=== PATIENT | male | born 1955 | race Caucasian/White ===

== ENCOUNTER 2016-07-25 13:58 | Emergency (ER) | payer OTHER ==
[~2016-07-25] VITALS: Ht 188 cm; Wt 133.8 kg
[~2016-07-25 13:58] MED LIST: CITALOPRAM HBR40 MG PO; COLACE100 MG PO; COUMADIN 2 MG TA2 M1 PO; CYMBALTA20 MG PO; GLUCOPHAGE500 MG PO; LEVAQUIN 500 M500 M2 PO; NEURONTIN 300300 M1 PO; NEURONTIN 300M300 M2 PO; OXYBUTYNIN 5 MG5 M1 PO; PERCOCET 10-321 EACH PO; PERCOCET 7.5-31 EACH PO; RAPAFLO8 MG PO; ROBAXIN 750 MG750 M1 PO; TYLENOL325 MG PO
[2016-07-25 14:49] LABS: ABSOLUTE NEUTROPHILS 7.6 thou/uL (1.4-8.2); BASOPHILS 0.6 % (0.0-2.0); EOSINOPHILS 1.5 % (0.0-3.0); HEMATOCRIT 42.8 % (42.0-52.0); HEMOGLOBIN 14.8 gm/dL (14.0-18.0); LYMPHOCYTES 17.8 % (24.0-44.0); MCHC 34.6 g/dL (28.0-37.0); MCV 83.8 fL (80.0-100.0); MONOCYTES 6.9 % (1.0-8.0); PLATELET COUNT 279 thou/uL (150-400); POLYS 73.2 % (36.0-66.0); RBC 5.11 mil/uL (4.50-6.00); RDW 13.6 % (10.5-14.5); WBC 10.3 thou/uL (4.0-11.0)
[2016-07-25 14:50] LABS: MANUAL DIFF NO
[2016-07-25 14:58] LABS: CREATININE 1.5 mg/dL (0.7-1.3)
[2016-07-25 15:03] LABS: ALBUMIN 4.1 g/dL (3.4-5.0); TOTAL BILIRUBIN 0.4 mg/dL (<0.1-1.0); TOTAL PROTEIN 7.9 g/dL (6.4-8.2)
[2016-07-25 15:09] LABS: URINE BILIRUBIN NEGATIVE (Negative); URINE BLOOD 1+ (Negative); URINE GLUCOSE-RANDOM* NEGATIVE (Negative); URINE KETONES NEGATIVE (Negative); URINE NITRITE NEGATIVE (Negative); URINE PROTEIN (DIPSTICK) NEGATIVE (Negative); URINE SPECIFIC GRAVITY 1.015 (1.003-1.035); URINE UROBILINOGEN 0.2 E.U./dl (0.2-1.0)
[2016-07-25 15:10] LABS: URINE COLOR YELLOW
[2016-07-25 15:20] LABS: BACTERIA None Seen /HPF (None Seen); CASTS None Seen /LPF (None Seen); CRYSTALS None Seen /LPF (None Seen); SQUAMOUS 0-3 Few /LPF (0-3); URINE RBC 3-10 Few /HPF (0-2); URINE WBC None Seen /HPF (0-5)
[2016-07-25] MEDS ORDERED: FLOMAX0.4 MG PO (16:17)
== END 2016-07-25 16:32 | disposition home or self-care (01) ==
LOC: ER 13:58
PROVIDERS: Nurse Practitioner Family
DX: E11.22 Type 2 diabetes mellitus with diabetic chronic kidney disease (principal); N18.9 Chronic kidney disease, unspecified; E11.40 Type 2 diabetes mellitus with diabetic neuropathy, unspecified; Z88.5 Allergy status to narcotic agent; Z88.0 Allergy status to penicillin; Z88.2 Allergy status to sulfonamides; Z91.011 Allergy to milk products; Z91.012 Allergy to eggs

== ENCOUNTER 2016-09-09 14:38 | Emergency (ER) | payer OTHER ==
[~2016-09-09] VITALS: Ht 182.9 cm; Wt 131.5 kg
--- NOTE | ~2016-09-09 | EKG ---
[facility] [place] [address] ELECTROCARDIOGRAM REPORT Name: MEENAKSHI WERNER Room #: DEP ANDALUSIA HEALTHSamara#: [id number] Admission: 09/09/16 Attend Phys: Discharge: 09/09/16 Date of : 51 Report #: [id number] THIS REPORT FOR: //name// [facility] ED Test Date: 2016-09-09 Test Time: 15:03:35 Pat Name: MEENAKSHI WERNER Department: Room: Gender: Recruiting Manager: : 1955 Requested By: Marli Turner Order Number: [id number] MD: Ayan Hernandez Measurements Intervals [place] Rate: 98 P: 42 [place]: 177 QRS: -30 QRSD: 133 T: 56 QT: 350 QTc: 447 Interpretive Statements Sinus rhythm IVCD, consider atypical RBBB Baseline wander in lead(s) V4 Compared to ECG 02/19/2014 13:41:18 incomplete right bundle branch block is now present Electronically Signed On 09-10-2016 8:07:08 CDT by Ayan Hernandez [email or web address] <ELECTRONICALLY SIGNED> By: Ayan Hernandez MD, [facility] 09/10/16 [id number] Ayan Hernandez MD, [facility] /EPI
[~2016-09-09 14:38] MED LIST changes: +FLOMAX0.4 MG PO
[2016-09-09 15:14] LABS: HEMATOCRIT 35.7 % (42.0-52.0); MCH 28.8 pg (26.0-34.0); MCHC 33.6 g/dL (28.0-37.0); MCV 85.8 fL (80.0-100.0); PLATELET COUNT 195 thou/uL (150-400); RBC 4.16 mil/uL (4.50-6.00); RDW 15.1 % (10.5-14.5); WBC 7.9 thou/uL (4.0-11.0)
[2016-09-09 15:16] LABS: MANUAL DIFF YES
[2016-09-09 15:26] LABS: ANION GAP 12 mmol/L (7-16); BUN 18 mg/dL (7-18); CALCIUM 8.9 mg/dL (8.5-10.1); CHLORIDE 97 mmol/L (98-107); CO2 22 mmol/L (21-32); CREATININE 1.4 mg/dL (0.7-1.3); GLUCOSE 187 mg/dL (74-106); POTASSIUM 4.4 mmol/L (3.5-5.1); SODIUM 131 mmol/L (136-145)
[2016-09-09 15:34] LABS: TROPONIN-I < 0.04 ng/mL (<0.04-0.07)
[2016-09-09 15:38] LABS: ABSOLUTE NEUTROPHILS 6.8 thou/uL (1.4-8.2); TOTAL CELL COUNT 100
[2016-09-09 16:37] LABS: URINE BILIRUBIN NEGATIVE (Negative); URINE BLOOD 2+ (Negative); URINE COLOR YELLOW; URINE GLUCOSE-RANDOM* NEGATIVE (Negative); URINE KETONES NEGATIVE (Negative); URINE NITRITE NEGATIVE (Negative); URINE PROTEIN (DIPSTICK) TRACE (Negative); URINE SPECIFIC GRAVITY <= 1.005 (1.003-1.035); URINE UROBILINOGEN 0.2 E.U./dl (0.2-1.0)
[2016-09-09 16:53] LABS: BACTERIA 1-9 Few /HPF (None Seen); CASTS None Seen /LPF (None Seen); CRYSTALS None Seen /LPF (None Seen); SQUAMOUS None Seen /LPF (0-3); URINE RBC 3-10 Few /HPF (0-2); URINE WBC 6-15 Few /HPF (0-5)
[2016-09-09] MEDS ORDERED: MACROBID 100 M100 M1 PO (16:58)
== END 2016-09-09 17:19 | disposition home or self-care (01) ==
LOC: ER 14:38
PROVIDERS: Emergency Medicine
DX: R55 Syncope and collapse (principal); N39.0 Urinary tract infection, site not specified; E11.40 Type 2 diabetes mellitus with diabetic neuropathy, unspecified; Z98.890 Other specified postprocedural states; Z96.642 Presence of left artificial hip joint; Z91.011 Allergy to milk products; Z88.5 Allergy status to narcotic agent; Z88.0 Allergy status to penicillin; Z88.2 Allergy status to sulfonamides; Z91.018 Allergy to other foods

== ENCOUNTER 2020-03-22 10:18 | Emergency (ER) | payer OTHER ==
[~2020-03-22] VITALS: Ht 182.9 cm; Wt 108.9 kg
[~2020-03-22 10:18] MED LIST changes: +MACROBID 100 M100 M1 PO
[2020-03-22 10:23] VITALS: BP 131/67
== END 2020-03-22 11:39 | disposition home or self-care (01) ==
LOC: ER 10:18
DX: S80.921A Unspecified superficial injury of right lower leg, initial encounter (principal); M79.89 Other specified soft tissue disorders; E11.40 Type 2 diabetes mellitus with diabetic neuropathy, unspecified; Z48.00 Encounter for change or removal of nonsurgical wound dressing; Z98.890 Other specified postprocedural states; Z96.642 Presence of left artificial hip joint; Z79.2 Long term (current) use of antibiotics; Z79.899 Other long term (current) drug therapy; Z91.011 Allergy to milk products; Z88.5 Allergy status to narcotic agent; Z88.0 Allergy status to penicillin; Z88.2 Allergy status to sulfonamides; Z91.012 Allergy to eggs; X58.XXXA Exposure to other specified factors, initial encounter; Y93.89 Activity, other specified; Y92.89 Other specified places as the place of occurrence of the external cause; Y99.8 Other external cause status

== ENCOUNTER 2020-05-26 11:41 | Emergency (ER) | payer OTHER ==
[~2020-05-26] VITALS: Ht 182.9 cm; Wt 133.8 kg
[2020-05-26 11:44] VITALS: BP 131/69
[2020-05-26] MEDS ORDERED: NEURONTIN300 MG PO (12:29)
== END 2020-05-26 12:32 | disposition home or self-care (01) ==
LOC: ER 11:41
DX: E11.40 Type 2 diabetes mellitus with diabetic neuropathy, unspecified (principal); Z79.899 Other long term (current) drug therapy; Z88.0 Allergy status to penicillin; Z88.2 Allergy status to sulfonamides; Z88.5 Allergy status to narcotic agent; Z91.012 Allergy to eggs; Z91.011 Allergy to milk products

== ENCOUNTER → 2020-07-28 | Outpatient (CLI) | payer OTHER ==
[~2020-07-28] VITALS: Ht 182.9 cm; Wt 133.8 kg
[~2020-07-28] MED LIST changes: +AMARYL2 M1 PO; +BUSPIRONE HCL10 MG PO; +DICYCLOMINE HCL20 MG PO; +DULOXETINE HCL30 MG PO; +FUROSEMIDE 40 M40 MG PO; +LIPITOR40 MG PO; +NEURONTIN300 MG PO; +OCUVITE ADULT1 EAC1 PO; +ZESTRIL10 MG PO; +ZOLOFT 50 MG TA50 MG PO
[2020-07-28 14:50] VITALS: BP 114/62
--- NOTE | 2020-07-28 15:37 | NUR ---
Pain Clinic Assessment: 1. History of Osteoarthritis: NO History of Rheumatoid Arthritis: NO 2. Height: 6 ft. 0 in. 182.9 cm. Weight: 295.0 lb. oz. 133.812 kg. Patient's BMI: 40.0 3. Vital Signs: BP: 114/62 Pulse: 79 Resp: 20 Temp: 02 Sat: 98 ECG Mon: 4. Pain Intensity: 6 TO 10 5. Fall Risk: Dizziness: N Needs help standing or walking: Y Fallen in the last 3 months: Y Fall risk comments: 6. Patient on Blood Thinner: None 7. History of Hypertension: N 8. Opioid Therapy greater than 6 weeks: N Opiate Contract Signed: 9. Risk Assessment Tool Provided: LOW-1 10. Functional Assessment Tool: 11. Recreational Drug Use: Never Drug Type: Tobacco Use: Never Smoker Tobacco Type: Amount or Packs/day: How Many Years: Alcohol Use: No Frequency: Quant:
== END ==
LOC: PAIN 12:50
PROVIDERS: ATTEND Anesthesiology Pain Medicine
DX: E11.40 Type 2 diabetes mellitus with diabetic neuropathy, unspecified (principal); G47.33 Obstructive sleep apnea (adult) (pediatric); E66.01 Morbid (severe) obesity due to excess calories; Z88.8 Allergy status to other drugs, medicaments and biological substances; Z79.899 Other long term (current) drug therapy

== ENCOUNTER → 2020-08-04 | Outpatient (CLI) | payer OTHER ==
[~2020-08-04] VITALS: Ht 182.9 cm; Wt 137.3 kg
[2020-08-04 10:24] VITALS: BP 102/54
--- NOTE | 2020-08-04 10:31 | NUR ---
Pain Clinic Assessment: 1. History of Osteoarthritis: NO History of Rheumatoid Arthritis: NO 2. Height: 6 ft. 0 in. 182.9 cm. Weight: 302.6 lb. oz. 137.259 kg. Patient's BMI: 41.0 3. Vital Signs: BP: 102/54 Pulse: 78 Resp: 20 Temp: 02 Sat: 97 ECG Mon: 4. Pain Intensity: 5 5. Fall Risk: Dizziness: N Needs help standing or walking: Y Fallen in the last 3 months: N Fall risk comments: 6. Patient on Blood Thinner: None 7. History of Hypertension: N 8. Opioid Therapy greater than 6 weeks: N Opiate Contract Signed: 9. Risk Assessment Tool Provided: LOW-1 10. Functional Assessment Tool: 11. Recreational Drug Use: Never Drug Type: Tobacco Use: Never Smoker Tobacco Type: Amount or Packs/day: How Many Years: Alcohol Use: No Frequency: Quant:
== END | disposition home or self-care (01) ==
LOC: PAIN 07:20
PROVIDERS: ATTEND Anesthesiology Pain Medicine
DX: M47.816 Spondylosis without myelopathy or radiculopathy, lumbar region (principal); G89.29 Other chronic pain; E11.22 Type 2 diabetes mellitus with diabetic chronic kidney disease; N18.9 Chronic kidney disease, unspecified; Z98.890 Other specified postprocedural states; Z79.899 Other long term (current) drug therapy; Z88.0 Allergy status to penicillin; Z88.2 Allergy status to sulfonamides

== ENCOUNTER → 2020-09-04 | Outpatient (CLI) | payer OTHER ==
[~2020-09-04] VITALS: Ht 182.9 cm; Wt 138.8 kg
[2020-09-04 15:30] VITALS: BP 114/59
--- NOTE | 2020-09-04 15:39 | NUR ---
Pain Clinic Assessment: 1. History of Osteoarthritis: NO History of Rheumatoid Arthritis: NO 2. Height: 6 ft. 0 in. 182.9 cm. Weight: 306.0 lb. oz. 138.801 kg. Patient's BMI: 41.5 3. Vital Signs: BP: 114/59 Pulse: 80 Resp: 16 Temp: 02 Sat: 98 ECG Mon: 4. Pain Intensity: 6 5. Fall Risk: Dizziness: N Needs help standing or walking: Y Fallen in the last 3 months: N Fall risk comments: 6. Patient on Blood Thinner: None 7. History of Hypertension: N 8. Opioid Therapy greater than 6 weeks: N Opiate Contract Signed: 9. Risk Assessment Tool Provided: LOW-1 10. Functional Assessment Tool: 11. Recreational Drug Use: Never Drug Type: Tobacco Use: Never Smoker Tobacco Type: Amount or Packs/day: How Many Years: Alcohol Use: No Frequency: Quant:
== END | disposition home or self-care (01) ==
LOC: PAIN 09:19
PROVIDERS: ATTEND Anesthesiology Pain Medicine
DX: M47.816 Spondylosis without myelopathy or radiculopathy, lumbar region (principal); G89.29 Other chronic pain; E11.40 Type 2 diabetes mellitus with diabetic neuropathy, unspecified; Z98.890 Other specified postprocedural states; Z79.899 Other long term (current) drug therapy; Z96.642 Presence of left artificial hip joint; Z88.0 Allergy status to penicillin; Z88.2 Allergy status to sulfonamides; Z88.8 Allergy status to other drugs, medicaments and biological substances